=== PATIENT | male | born 1985 | race Two or more races ===

== ENCOUNTER 2016-06-10 10:44 | Emergency (ER) | payer SELFPAY ==
[~2016-06-10] VITALS: Ht 165.1 cm; Wt 59.0 kg
--- NOTE | 2016-06-10 11:37 | NUR ---
Patient discharged to home in stable conditon. Written and verbal after care instructions given. Patient verbalizes understanding of instructions.
== END 2016-06-10 11:38 | disposition home or self-care (01) ==
LOC: ER 10:44
DX: R07.9 Chest pain, unspecified (principal); F17.200 Nicotine dependence, unspecified, uncomplicated; E78.00 Pure hypercholesterolemia, unspecified
CPT/HCPCS: 71010; 93005; 99284; A4663